=== PATIENT | female | born 1950 | race Caucasian/White ===

== ENCOUNTER → 2016-08-23 | Outpatient (CLI) | payer OTHER ==
--- NOTE | 2016-08-23 10:58 | MA ---
Left Diagnostic Digital Mammogram with iCAD Clinical Indications: Six-month follow up for snowstorm appearance of extracapsular silicone on recen t mammogram. Technique: Digital CC and MLO without and with implant-displaced views of the left breast This exami nation was processed by the iCAD computer-aided detection system. Comparison: January 2016, 2011, 2010. Breast Density: 3, 50-75%. Findings: Partially calcified, slightly irregular left breast augmentation implant noted. Diffuse mul tifocal densities and calcifications throughout the left breast appear similar to previous study cons istent with the "snowstorm" appearance of extracapsular silicone. No significant interval change sin e 2016 mammogram. No suspicious microcalcifications. Limited due to the augmentation implant and diff use snowstorm appearance. However, no suspicious findings. Impression: ACR BI-RADS 2: Benign left mammogram. Recommendation: Annual mammograms with next bilateral screening mammograms in January 2017. Findings and recommendations have been discussed with the patient who agrees with the plan. [facility] will send a result letter to the patient. Negative mammography should not preclude additional workup of a clinically suspicious finding. The patient's information is entered into a reminder system with a target due date for her next mammo gram.
== END ==
LOC: BRMIMAGING 09:43
DX: R92.8 Other abnormal and inconclusive findings on diagnostic imaging of breast (principal)
CPT/HCPCS: G0206

== ENCOUNTER → 2017-02-23 | Outpatient (CLI) | payer OTHER | LOC: BRMIMAGING 14:33 | DX: Z12.31 Encounter for screening mammogram for malignant neoplasm of breast (principal) | CPT/HCPCS: G0202 ==

== ENCOUNTER → 2018-04-20 | Outpatient (CLI) | payer OTHER | LOC: BRMIMAGING 12:47 | DX: Z12.31 Encounter for screening mammogram for malignant neoplasm of breast (principal) ==